=== PATIENT | male | born 1995 | race Caucasian/White ===

== ENCOUNTER 2018-04-15 07:25 | Outpatient (CLI) | payer BC ==
--- NOTE | 2018-04-15 08:25 | RAD ---
BARIUM SWALLOW: HISTORY: Dysphagia off and on for 2 years. FINDINGS: The patient ingested the barium and crystals without difficulty. The esophageal mucosa and motility were normal. There is some transverse fold seen in the distal esophagus suggesting a feline esophagu s. No hiatal hernia or reflux was demonstrated during the examination. 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 This is often associated with gastroesophageal reflux. The other entity that can cause these type of folds is an eosinophilic esophagitis. POS: [facility]
== END 2018-04-15 07:26 | disposition home or self-care (01) ==
LOC: RAD 07:25
PROVIDERS: ATTEND Otolaryngology Plastic Surgery within the Head & Neck
DX: R13.10 Dysphagia, unspecified (principal); K21.0 Gastro-esophageal reflux disease with esophagitis
CPT/HCPCS: 74220